=== PATIENT | female | born 1980 | race Two or more races ===

== ENCOUNTER 2016-07-03 23:12 | Emergency (ER) | payer OTHER ==
[~2016-07-03] VITALS: Ht 170.2 cm; Wt 72.6 kg
[2016-07-03] MEDS ORDERED: HYDR25TAB PO (23:26)
[2016-07-03] MEDS ORDERED: NAPR1TAB86 PO (23:26)
[2016-07-03] MEDS ORDERED: MIRA33504 PO (23:26)
[2016-07-03] MEDS ORDERED: PROP80CA PO (23:26)
[2016-07-03] MEDS ORDERED: CYCL10TA PO (23:26)
[2016-07-03] MEDS ORDERED: NORT25CA2 PO (23:26)
[2016-07-03] MEDS ORDERED: ZOLM2.5T2 PO (23:26)
[2016-07-04] MEDS ORDERED: PERCOCET 5MG/325MG TAB PO ONE (05:00)
[2016-07-04] MEDS ORDERED: ONDANSETRON 4 MG ORAL DISINTEGRATING TAB (S0181) PO ONE (05:00)
[2016-07-04 05:16] VITALS: BP 120/85
== END 2016-07-04 05:18 | disposition home or self-care (01) ==
LOC: M ED 07-04 00:28
DX: R04.0 Epistaxis (principal); R51 Headache; G43.909 Migraine, unspecified, not intractable, without status migrainosus; I10 Essential (primary) hypertension; Z79.899 Other long term (current) drug therapy; Z88.8 Allergy status to other drugs, medicaments and biological substances

== ENCOUNTER 2016-09-02 22:14 | Emergency (ER) | payer OTHER ==
[~2016-09-02] VITALS: Ht 170.2 cm; Wt 70.4 kg
[~2016-09-02 22:14] MED LIST: CYCL10TA PO; HYDR25TAB PO; MIRA33504 PO; NAPR1TAB86 PO; NORT25CA2 PO; PROP80CA PO; ZOLM2.5T2 PO
[2016-09-02] MEDS ORDERED: BENA25TA10 PO (22:24)
[2016-09-02] MEDS ORDERED: diphenhydrAMINE INJ 50MG/ML VIAL (J1200) IV STA (22:52)
[2016-09-02] MEDS ORDERED: KETOROLAC 30 MG/ML VIAL (J1885) IV ONE (23:00)
[2016-09-02] MEDS ORDERED: NS 1,000 ML IV ONE (23:00)
[2016-09-02] MEDS ORDERED: ONDANSETRON 4MG/2ML VIAL (J2405) IV ONE (23:00)
[2016-09-03 00:20] VITALS: BP 100/63
[2016-11-03] MEDS ORDERED: ONDA4TAB6 PO (15:38)
[2016-11-03] MEDS ORDERED: PANT40TA2 PO (15:38)
[2016-11-03] MEDS ORDERED: NORT10CA2 PO (15:38)
[2016-11-03] MEDS ORDERED: SUMA4INJ3 SC (15:38)
== END 2016-09-03 00:27 | disposition home or self-care (01) ==
LOC: M ED 22:14
DX: G43.909 Migraine, unspecified, not intractable, without status migrainosus (principal); Z79.899 Other long term (current) drug therapy; Z88.8 Allergy status to other drugs, medicaments and biological substances
CPT/HCPCS: 96361; 96374; 96375; 99283; J1200; J1885; J2405

== ENCOUNTER 2016-11-09 12:22 | Day surgery (SDC) | payer OTHER ==
[~2016-11-09] VITALS: Ht 170.2 cm; Wt 70.3 kg
[~2016-11-09 12:22] MED LIST changes: +BENA25TA10 PO; +LR 1,000 ML IV ONE; +NORT10CA2 PO; +ONDA4TAB6 PO; +PANT40TA2 PO; +SUMA4INJ3 SC
[2016-11-09 13:12] LABS: MEAN CORPUSCULAR HEMOGLOBIN 29.6 pg (27.0-33.0); MEAN CORPUSCULAR HGB CONC 33.8 g/dl (32.0-36.5); MEAN CORPUSCULAR VOLUME 87.5 fl (80.0-96.0); WHITE BLOOD COUNT 4.7 K/mm3 (4.0-10.0)
[2016-11-09] MEDS ORDERED: PROPOFOL 200 MG/20 ML VIAL As Ordered ONE (13:19)
[2016-11-09] MEDS ORDERED: dexameTHASONE 4 MG/ML 1ML VIAL (J1100) As Ordered ONE (13:19)
[2016-11-09] MEDS ORDERED: LIDOCAINE 2% INJ 100 MG/5 ML SDV (FOR ANES.) As Ordered ONE (13:19)
[2016-11-09] MEDS ORDERED: ONDANSETRON 4MG/2ML VIAL (J2405) As Ordered ONE (13:19)
[2016-11-09] MEDS ORDERED: KETOROLAC 60 MG/2 ML VIAL (J1885) As Ordered ONE (13:19)
[2016-11-09] MEDS ORDERED: MIDAZOLAM INJ 2 MG/2 ML VIAL (J2250) As Ordered ONE ×2 (13:20→15:23)
[2016-11-09] MEDS ORDERED: fentaNYL 100 MCG/2 ML INJECTION (J3010) As Ordered ONE (13:20)
[2016-11-09 13:42] LABS: CONTROL LINE HCG INT CTR LINE PRESENT
[2016-11-09] MEDS ORDERED: LIDOCAINE W/EPINEPHRINE 1% 20ML VIAL As Ordered ONE (14:21)
[2016-11-09] MEDS ORDERED: KETAMINE HCL 200 MG/20 ML VIAL As Ordered ONE (14:51)
[2016-11-09] MEDS ORDERED: ONDANSETRON 4MG/2ML VIAL (J2405) IV PRN ×2 (15:45→16:00)
[2016-11-09] MEDS ORDERED: LR 1,000 ML IV SCH (15:45)
[2016-11-09] MEDS ORDERED: NORCO, ANEXSIA 5/325MG TABLET (HYDROcodone/ACETAMINOPHEN) PO PRN (15:45)
[2016-11-09] MEDS ORDERED: MIDAZOLAM INJ 2 MG/2 ML VIAL (J2250) IV ONE (16:00)
[2016-11-09] MEDS ORDERED: KETOROLAC 30 MG/ML VIAL (J1885) IV PRN (16:00)
[2016-11-09] MEDS ORDERED: MIDAZOLAM INJ 2 MG/2 ML VIAL (J2250) IV PRN (16:00)
[2016-11-09] MEDS ORDERED: MORPHINE 2 MG/ML 1ML SYRINGE IV PRN (16:00)
[2016-11-09 16:40] VITALS: BP 126/85
--- NOTE | 2016-11-10 06:45 | RO ---
DATE OF PROCEDURE: 11/09/2016 PREOPERATIVE DIAGNOSIS: Cervical dysplasia. POSTOPERATIVE DIAGNOSIS: Cervical dysplasia. PROCEDURE: Loop electrosurgical excision procedure (LEEP). SURGEON: Dr. Theodore Merrill SENIOR ACCOUNT DIRECTOR: None. ANESTHESIA: IV Sedation/PAROLE DIRECTOR Kitty. COMPLICATIONS: None. IV FLUIDS: 700 mL isotonic fluid. ESTIMATED BLOOD LOSS: Less than 5 mL. URINE OUTPUT: 25 mL in and out. The patient is a 36-year-old, (G) 0, with known cervical dysplasia found to have high-grade squamous intraepithelial lesion (HSIL) on biopsies. The patient was extensively counseled on risks/benefits/alternatives/indications with recommendation for excisional procedure. The patient was taken to the operating room after consent was signed and underwent again risks/benefits/alternatives/indication counseling. After the patient appropriately underwent anesthesia, the patient was prepped and draped in routine fashion. In and out catheter was placed. A sterile speculum was placed into the patient's vagina and the cervix was visualized. A single tooth tenaculum was used to grasp the anterior lip of the cervix. A paracervical block with 20 mL of 1% lidocaine with epinephrine was utilized in routine fashion and 3% acetic acid was then placed all around the cervix with aceta whitening noted. The single tooth tenaculum was then removed. A LEEP was done with removal of tissue, tagging at 12 o'clock. This was removed in two segments. At the conclusion of this, ball cautery was used to coagulate the remaining tissue until hemostasis was obtained. As hemostasis was obtained, all instruments were removed from the patient's vaginal and a manual sweep demonstrated no retained objects. The needle, sponge and lap counts were correct times two. The patient was taken to the recovery room in stable condition. No antibiotics were indicated for this case. Shara Merrill [employer] CH[employer]STY
== END 2016-11-09 16:53 | disposition home or self-care (01) ==
LOC: M SDC 12:22
PROVIDERS: ATTEND Student in an Organized Health Care Education/Training Program
DX: N85.01 Benign endometrial hyperplasia (principal); R87.810 Cervical high risk human papillomavirus (HPV) DNA test positive; I10 Essential (primary) hypertension; N97.9 Female infertility, unspecified; K21.9 Gastro-esophageal reflux disease without esophagitis; Z87.891 Personal history of nicotine dependence; Z88.8 Allergy status to other drugs, medicaments and biological substances; Z79.899 Other long term (current) drug therapy
CPT/HCPCS: 36415; 57522; 84703; 85027; 86850; 86900; 86901; 88305; J1100; J1885; J2250; J2405; J3010

== ENCOUNTER 2016-11-14 21:26 | Emergency (ER) | payer OTHER ==
[~2016-11-14] VITALS: Ht 170.2 cm; Wt 71.8 kg
[~2016-11-14 21:26] MED LIST changes: -LR 1,000 ML IV ONE
[2016-11-15] MEDS ORDERED: KETOROLAC 60 MG/2 ML VIAL (J1885) IM ONE (02:00)
[2016-11-15] MEDS ORDERED: KETOROLAC 30 MG/ML VIAL (J1885) As Ordered ONE (02:03)
[2016-11-15 02:21] LABS: BASO % 0.3 % (0.0-1.0); EOS # 0.1 K/mm3 (0.0-0.50); LARGE UNSTAINED CELL # 0.1 K/mm3 (0.0-0.4); LARGE UNSTAINED CELL % 1.1 % (0.0-4.0); LYMPH # 2.2 K/mm3 (1.5-4.5); LYMPH % 31.8 % (24.0-44.0); MEAN CORPUSCULAR HEMOGLOBIN 28.8 pg (27.0-33.0); MEAN CORPUSCULAR HGB CONC 32.9 g/dl (32.0-36.5); MEAN CORPUSCULAR VOLUME 87.6 fl (80.0-96.0); MONO # 0.3 K/mm3 (0.0-0.8); MONO % 4.1 % (0.0-5.0); NEUTROPHILS # 4.2 K/mm3 (1.8-7.7); NEUTROPHILS % 60.6 % (36.0-66.0); PLATELET COUNT, AUTOMATED 255 k/mm3 (150-450); RED CELL DISTRIBUTION WIDTH 12.1 % (11.5-14.5)
[2016-11-15 02:58] VITALS: BP 138/93
== END 2016-11-15 03:01 | disposition home or self-care (01) ==
LOC: M ED 21:26
DX: N92.0 Excessive and frequent menstruation with regular cycle (principal); I10 Essential (primary) hypertension; K21.9 Gastro-esophageal reflux disease without esophagitis; Z79.899 Other long term (current) drug therapy; Z88.8 Allergy status to other drugs, medicaments and biological substances; Z98.890 Other specified postprocedural states; Z87.42 Personal history of other diseases of the female genital tract
CPT/HCPCS: 36415; 84702; 85025; 86901; 96372; 99283; J1885

== ENCOUNTER 2017-05-12 09:34 | Emergency (ER) | payer OTHER ==
[2017-05-12] MEDS: ACETAMINOPHEN 325 MG TAB PO (10:20)
[2017-05-12 10:28] LABS: CONTROL LINE HCG INT CTR LINE PRESENT; HCG, SERUM QUALITATIVE NEGATIVE (NEGATIVE)
[2017-05-12 10:32] LABS: KETONE, URINE AUTO RFX NEGATIVE (NEGATIVE); MUCUS, URINE RFX SMALL (NEGATIVE); NITRITE, URINE AUTO RFX NEGATIVE (NEGATIVE); RBC, URINE AUTO RFX 4 /HPF (0-3); SPECIFIC GRAVITY UR AUTO RFX 1.023 (1.002-1.035); SQUAM EPITHELIAL CELL UR AURFX 2 /HPF (0-6); WBC, URINE AUTO RFX 1 /HPF (0-3)
[2017-05-12 10:34] LABS: LEUKOCYTE ESTERASE UR AUTO RFX TRACE (NEGATIVE)
[2017-05-12 12:12] LABS: ANION GAP 7 MEQ/L (8-16); BLOOD UREA NITROGEN 13 MG/DL (7-18); CALCIUM LEVEL 8.7 MG/DL (8.5-10.1); CARBON DIOXIDE LEVEL 28 MEQ/L (21-32); CHLORIDE LEVEL 107 MEQ/L (98-107); GLOMERULAR FILTRATION RATE > 60.0 (>60); GLUCOSE, FASTING 90 MG/DL (70-100); POTASSIUM SERUM 4.5 MEQ/L (3.5-5.1); SODIUM LEVEL 142 MEQ/L (136-145)
== END 2017-05-12 12:26 | disposition home or self-care (01) ==
LOC: M ED 09:34
DX: N83.201 Unspecified ovarian cyst, right side (principal); N83.202 Unspecified ovarian cyst, left side; N83.8 Other noninflammatory disorders of ovary, fallopian tube and broad ligament; I10 Essential (primary) hypertension; G43.909 Migraine, unspecified, not intractable, without status migrainosus; D35.2 Benign neoplasm of pituitary gland; Z88.8 Allergy status to other drugs, medicaments and biological substances; Z79.899 Other long term (current) drug therapy
CPT/HCPCS: 76856

== ENCOUNTER 2017-06-21 23:12 | Emergency (ER) | payer OTHER ==
[2017-06-22] MEDS ORDERED: ONDANSETRON 4MG/2ML VIAL (J2405) As Ordered (02:20)
[2017-06-22] MEDS: MORPHINE 10 MG/ML 1ML VIAL (J2270) IM (02:24)
[2017-06-22] MEDS: NS 1,000 ML IV (02:35)
[2017-06-22] MEDS: ONDANSETRON 4MG/2ML VIAL (J2405) IV (02:35)
== END 2017-06-22 03:31 | disposition home or self-care (01) ==
LOC: M ED 23:12
DX: Z03.6 Encounter for observation for suspected toxic effect from ingested substance ruled out (principal); I10 Essential (primary) hypertension; G43.909 Migraine, unspecified, not intractable, without status migrainosus
CPT/HCPCS: J2405

== ENCOUNTER 2017-06-22 14:16 | Emergency (ER) | payer OTHER ==
[2017-06-22] MEDS: KETOROLAC 30 MG/ML VIAL (J1885) IV (16:32)
[2017-06-22] MEDS: PROMETHAZINE INJ 25 MG/ML VIAL (J2550) IV (16:32)
[2017-06-22 16:43] LABS: HEMATOCRIT 36.3 % (36.0-47.0); MEAN CORPUSCULAR HEMOGLOBIN 29.3 pg (27.0-33.0); MEAN CORPUSCULAR HGB CONC 33.1 g/dl (32.0-36.5); MEAN CORPUSCULAR VOLUME 88.8 fl (80.0-96.0); PLATELET COUNT, AUTOMATED 242 10^3/uL (150-450); RED BLOOD COUNT 4.09 10^6/uL (4.00-5.40); RED CELL DISTRIBUTION WIDTH 12.3 % (11.5-14.5)
[2017-06-22 17:19] LABS: ANION GAP 7 MEQ/L (8-16); BLOOD UREA NITROGEN 13 MG/DL (7-18); CALCIUM LEVEL 8.6 MG/DL (8.5-10.1); CARBON DIOXIDE LEVEL 26 MEQ/L (21-32); CHLORIDE LEVEL 105 MEQ/L (98-107); GLOMERULAR FILTRATION RATE > 60.0 (>60); GLUCOSE, FASTING 108 MG/DL (70-100); POTASSIUM SERUM 3.8 MEQ/L (3.5-5.1); SODIUM LEVEL 138 MEQ/L (136-145)
== END 2017-06-22 18:44 | disposition home or self-care (01) ==
LOC: M ED 14:16
DX: G43.909 Migraine, unspecified, not intractable, without status migrainosus (principal); Z79.899 Other long term (current) drug therapy; Z88.8 Allergy status to other drugs, medicaments and biological substances
CPT/HCPCS: J1885

== ENCOUNTER → 2017-07-04 | Outpatient (CLI) | payer OTHER ==
[~2017-07-04] MED LIST changes: -BENA25TA10 PO; -CYCL10TA PO; -HYDR25TAB PO; -MIRA33504 PO; -NAPR1TAB86 PO; -NORT10CA2 PO; -NORT25CA2 PO; -ONDA4TAB6 PO; -PANT40TA2 PO; +PROHANCE 279.3MG/ML 15ML VIAL (A9576) As Ordered; -PROP80CA PO; -SUMA4INJ3 SC; -ZOLM2.5T2 PO
== END ==
LOC: M RAD 12:54
DX: E22.1 Hyperprolactinemia (principal)
CPT/HCPCS: A9576

== ENCOUNTER → 2018-05-09 | Outpatient (CLI) | payer OTHER ==
[~2018-05-09] MED LIST changes: +BENA25TA10 PO; +BROM1TAB IC; +CLOM50TA9 PO; +CYCL10TA PO; +HYDR25TAB PO; +IMIT5SPR; +MIRA33504 PO; +NAPR1TAB86 PO; +NORT10CA2 PO; +NORT25CA2 PO; +ONDA4TAB6 PO; +PANT40TA3 PO; +PRENTAB77; -PROHANCE 279.3MG/ML 15ML VIAL (A9576) As Ordered; +PROP80CA PO; +SUMA4INJ3 SC; +ZOLM2.5T2 PO
--- NOTE | 2018-05-09 10:23 | REP ---
BILATERAL BASELINE MAMMOGRAM: Bilateral mammography performed in the MLO and CC projections. This is the patient's baseline mammogram. There is a family history of breast cancer in mother at age 37. Tyrer-Cuzick lifetime risk of breast cancer is 38%. Breast parenchyma is extremely dense bilaterally. This limits the sensitivity of the mammogram. There is a rounded nodular density at 12 o'clock in the left breast approximately 8 mm in diameter. No other definite mass is seen. No clustered microcalcifications are seen. IMPRESSION: ACR 0 incomplete. Possible 8 mm nodule 12 o'clock left breast anteriorly. Recommend spot compression views and ultrasound to further evaluate. Also given the patient's markedly dense breasts and Tyrer-Cuzick lifetime risk of breast cancer at 38%, supplemental screening breast MRI is recommended. BIRADS 0: BI-RADS/ACR category 0 mammogram, Incomplete: Need additional imaging evaluation and/or prior mammograms for comparison. This mammogram was interpreted with the aid of an FDA-approved computer-aided detection system. The patient states she has not had a clinical breast exam in over a year. The patient letter being requested is M0. Electronically Signed by Misha Miles MD 05/09/2018 08:33 P
== END ==
LOC: M RAD 08:08
PROVIDERS: ATTEND Student in an Organized Health Care Education/Training Program
DX: Z12.31 Encounter for screening mammogram for malignant neoplasm of breast (principal); Z80.3 Family history of malignant neoplasm of breast; N63.20 Unspecified lump in the left breast, unspecified quadrant

== ENCOUNTER → 2018-05-23 | Outpatient (CLI) | payer OTHER ==
--- NOTE | 2018-05-24 10:24 | REP ---
DIGITAL DIAGNOSTIC UNILATERAL LEFT BREAST MAMMOGRAPHY WITH CAD AND FOCUSED LEFT BREAST SONOGRAPHY: HISTORY: Screening mammography May 09, 2018 was BIRADS category 0 because of an 8 mm nodule density in the 12-o'clock position. Diagnostic imaging was recommended. FINDINGS: Breast parenchyma is again seen to be heterogeneously dense. A 12-o'clock position in the superficial subdermal soft tissues there is an 8 mm nodular opacity seen on magnified focal spot compression diagnostic images. No other dominant density is seen. No microcalcific cluster, worrisome skin change, or architectural distortion is seen. SONOGRAPHIC FINDINGS: Focused left breast sonography is performed from 11-o'clock position to 1-o'clock position. Heterogeneous fibroglandular echotexture is seen. There are a few dilated ducts seen. At 12-o'clock position, there is a cyst measuring 6 x 5 x 5 mm just adjacent to the nipple. Also at 12-o'clock position and more superficially, there is a complex cystic structure containing hypoechoic material. This measures 7 x 5 x 5 mm. This is felt to correspond with the mammographic opacity. It does not meet criteria of a simple cyst. IMPRESSION: BIRADS 4: BI-RADS/ACR category 4 mammogram. Suspicious Abnormality - biopsy should be considered. BIRADS category is felt to be best assigned as category 4 suspicious left breast imaging. There is a superficial nodule at 12-o'clock position, which does not meet criteria of a simple cyst. Ultrasound guided cyst aspiration and/or biopsy is recommended. This mammogram was interpreted with the aid of an FDA-approved computer-aided detection system. The patient states that she/he has not had a clinical breast exam in over a year. The patient letter being requested is M4 dense . Electronically Signed by Sameer Dixon MD 05/24/2018 12:50 P
== END ==
LOC: M RAD 14:15
PROVIDERS: ATTEND Student in an Organized Health Care Education/Training Program
DX: R92.2 Inconclusive mammogram (principal); N63.20 Unspecified lump in the left breast, unspecified quadrant

== ENCOUNTER → 2018-06-25 | Outpatient (CLI) | payer OTHER ==
[~2018-06-25] MED LIST changes: +LIDOCAINE 1% MDV 20ML VIAL As Ordered ONE
--- NOTE | 2018-06-25 11:29 | REP ---
POST BIOPSY LEFT BREAST MAMMOGRAM: Following ultrasound-guided biopsy of the left breast nodule, mammogram is performed of the left breast in the ML and CC projections. Metallic clip is seen at the site of the nodule in the upper outer quadrant. Electronically Signed by Misha Miles MD 06/25/2018 05:28 P
--- NOTE | 2018-06-25 17:30 | REP ---
ULTRASOUND GUIDED LEFT BREAST BIOPSY The procedure was performed under the direct supervision of Dr. Miles The patient has a history of the superficial nodule at the 12 o'clock position of the left breast which is not the criteria of a simple cyst seen on a previous ultrasound dated 05/23/2018. The risks and benefits of the procedure were explained to the patient and informed consent was obtained. The left breast nodule was localized using ultrasound guidance. The skin was prepped and draped in a sterile fashion. 1% Xylocaine was used as a local anesthetic. Using ultrasound guidance a 13-gauge suction assisted Mammotome needle was inserted and six core biopsy samples were obtained. A marker clip was placed at the biopsy site. The patient tolerated the procedure well and there were no immediate complications. After the appropriate amount of monitored convalescence the patient was discharged from the department. Reviewed by EVERETT Cannon 06/25/2018 03:03 P Electronically Signed by Misha Miles MD 06/25/2018 05:21 P
== END ==
LOC: M RADPRO 09:36
PROVIDERS: ATTEND Surgery
DX: N60.12 Diffuse cystic mastopathy of left breast (principal); Z79.899 Other long term (current) drug therapy; Z88.8 Allergy status to other drugs, medicaments and biological substances

== ENCOUNTER → 2018-08-26 | Outpatient (REF) | payer OTHER ==
[~2018-08-26] MED LIST changes: -LIDOCAINE 1% MDV 20ML VIAL As Ordered ONE
[2018-08-26 19:29] LABS: HEMATOCRIT 38.5 % (36.0-47.0); HEMOGLOBIN 12.1 g/dl (12.0-15.5); MEAN CORPUSCULAR HEMOGLOBIN 29.5 pg (27.0-33.0); MEAN CORPUSCULAR HGB CONC 31.4 g/dl (32.0-36.5); MEAN CORPUSCULAR VOLUME 93.9 fl (80.0-96.0); PLATELET COUNT, AUTOMATED 246 10^3/uL (150-450); WHITE BLOOD COUNT 5.8 10^3/uL (4.0-10.0)
[2018-08-26 19:53] LABS: ERYTHROCYTE SEDIMENTATION RATE 12 mm/hr (0-20)
[2018-08-26 20:07] LABS: ALBUMIN 3.8 GM/DL (3.2-5.2); ALT/SGPT 14 U/L (12-78); BILIRUBIN,TOTAL 0.5 MG/DL (0.2-1.0); BLOOD UREA NITROGEN 14 MG/DL (7-18); CALCIUM LEVEL 9.1 MG/DL (8.5-10.1); CARBON DIOXIDE LEVEL 22 MEQ/L (21-32); CHLORIDE LEVEL 111 MEQ/L (98-107); CPK CREATINE PHOSPHOKINASE 97 U/L (26-192); CREATININE FOR GFR 0.71 MG/DL (0.55-1.30); GLOMERULAR FILTRATION RATE > 60.0 (>60); GLUCOSE, FASTING 76 MG/DL (70-100); POTASSIUM SERUM 3.9 MEQ/L (3.5-5.1); RHEUMATOID FACTOR QUANT < 10.0 IU/ML (<15.0); SODIUM LEVEL 141 MEQ/L (136-145); TOTAL PROTEIN 7.6 GM/DL (6.4-8.2)
[2018-08-27 11:34] LABS: TOTAL 25(OH) VITAMIN D 15.9 NG/ML (30.0-100.0)
[2018-08-30 00:07] LABS: ANTINUCLEAR ANTIBODIES DIRECT Negative (Negative); Lyme Disease IgG Ab 18 kDa Ban Absent (.); Lyme Disease IgG Ab 23 kDa Ban Present (.); Lyme Disease IgG Ab 28 kDa Ban Absent (.); Lyme Disease IgG Ab 30 kDa Ban Absent (.); Lyme Disease IgG Ab 39 kDa Ban Absent (.); Lyme Disease IgG Ab 41 kDa Ban Absent (.); Lyme Disease IgG Ab 45 kDa Ban Absent (.); Lyme Disease IgG Ab 58 kDa Ban Absent (.); Lyme Disease IgG Ab 66 kDa Ban Absent (.); Lyme Disease IgG Ab 93 kDa Ban Present (.); Lyme Disease IgG West Blot Int Negative (.); Lyme Disease IgG/IgM Antibodie <0.91 ISR (0.00-0.90); Lyme Disease IgM Ab 23 kDa Ban Present (.); Lyme Disease IgM Ab 39 kDa Ban Present (.); Lyme Disease IgM Ab 41 kDa Ban Absent (.); Lyme Disease IgM Ab Quantitati 1.14 index (0.00-0.79); Lyme Disease IgM West Blot Int Positive (.)
== END ==
LOC: M SFHCLERA 15:41
PROVIDERS: ATTEND Nurse Practitioner Family
DX: M79.10 Myalgia, unspecified site (principal)

== ENCOUNTER → 2018-11-28 | Outpatient (CLI) | payer OTHER ==
--- NOTE | 2018-11-28 14:43 | REP ---
BILATERAL MAMMOGRAM AND BILATERAL BREAST ULTRASOUND: Family history of breast cancer at age 37 in mother, also breast cancer in maternal aunt. Benign ultrasound guided biopsy of left breast 06/25/2018. The [facility] lifetime risk of breast cancer is 37.7%. Patient complains of a pinching sensation at the site of the biopsy at 12 o'clock left breast. Patient also complains of right axillary pain. MLO and CC views of the both breasts performed and compared to prior study of 05/09/2018. Once again there is very dense fibroglandular tissue bilaterally. There is no change in the pattern with no definite new mass or architectural distortion. A metallic clip is seen at the 12 o'clock position of the left breast anteriorly at the site of the benign biopsy. Small axillary lymph nodes are seen bilaterally. Real-time sonographic evaluation of the left breast performed at 12 o'clock at the site of the prior biopsy. A nodule is again seen, now containing a biopsy marking clip. The nodule measures 4 x 3 x 6 mm, smaller than on the prior study at which time the nodule measured 7 x 5 x 5 mm. Real-time sonographic evaluation of the right axillary region demonstrates no suspicious abnormality. IMPRESSION: BIRADS 2: BI-RADS/ACR category 2 mammogram. Benign Findings. Dense breast parenchyma limits the sensitivity of the mammogram. No mass or clustered microcalcifications bilaterally. At the site of pinching in the left breast, at the site of the prior biopsy, a nodule is again seen containing a biopsy marking clip, slightly smaller than on the prior ultrasound in June 2018. The biopsy was benign. There is no sonographic abnormality or suspicious nodule in the right axillary region where the patient complains of pain. Recommend followup mammogram in 1 year. Also given the patient's elevated lifetime risk of breast cancer, yearly supplemental screening MRI of the breast is recommended. This mammogram was interpreted with the aid of an FDA-approved computer-aided detection system. The patient states he/she had a clinical breast exam in 11/2018. The patient letter being requested is M2. Electronically Signed by Misha Miles MD 11/28/2018 03:23 P
== END ==
LOC: M RAD 10:38
PROVIDERS: ATTEND Transplant Surgery
DX: N60.32 Fibrosclerosis of left breast (principal); N63.20 Unspecified lump in the left breast, unspecified quadrant; Z80.3 Family history of malignant neoplasm of breast

== ENCOUNTER 2019-03-06 13:57 | Emergency (ER) | payer OTHER ==
[~2019-03-06] VITALS: Ht 165.1 cm; Wt 67.3 kg
[~2019-03-06 13:57] MED LIST changes: -BROM1TAB IC; +BROM2.5T2 IC; +ZOLM2.5T14 PO; -ZOLM2.5T2 PO
[2019-03-06] MEDS ORDERED: SUMA100T2 PO (14:08)
[2019-03-06] MEDS ORDERED: LABE10TAB PO (14:08)
[2019-03-06] MEDS ORDERED: BUTA-198 PO (14:08)
[2019-03-06] MEDS ORDERED: SUMA6INJ16 (14:08)
[2019-03-06] MEDS ORDERED: ZOFR4TAB16 PO (14:08)
[2019-03-06] MEDS ORDERED: TOPI100T9 PO (14:08)
[2019-03-06] MEDS ORDERED: dexameTHASONE 4 MG/ML 1ML VIAL (J1100) IV ONE (14:45)
[2019-03-06] MEDS ORDERED: NS 1,000 ML IV ONE (14:45)
[2019-03-06] MEDS ORDERED: KETOROLAC 30 MG/ML VIAL (J1885) IV ONE (14:45)
[2019-03-06] MEDS ORDERED: METOCLOPRAMIDE INJ 10MG/2ML VIAL (J2765) IV ONE (14:45)
[2019-03-06] MEDS ORDERED: diphenhydrAMINE INJ 50MG/ML VIAL (J1200) IV ONE (14:45)
[2019-03-06 15:06] LABS: BASO % 0.4 % (0.0-1.0); EOS % 0.3 % (0.0-3.0); HEMATOCRIT 37.4 % (36.0-47.0); HEMOGLOBIN 11.8 g/dl (12.0-15.5); LYMPH # 1.1 10^3/uL (1.5-5.0); LYMPH % 15.9 % (24.0-44.0); MEAN CORPUSCULAR HEMOGLOBIN 28.8 pg (27.0-33.0); MEAN CORPUSCULAR HGB CONC 31.6 g/dl (32.0-36.5); MEAN CORPUSCULAR VOLUME 91.2 fl (80.0-96.0); MONO # 0.2 10^3/uL (0.0-0.8); MONO % 3.4 % (0.0-5.0); NEUTROPHILS # 5.7 10^3/uL (1.5-8.5); NEUTROPHILS % 79.7 % (36.0-66.0); PLATELET COUNT, AUTOMATED 226 10^3/uL (150-450); WHITE BLOOD COUNT 7.1 10^3/uL (4.0-10.0)
[2019-03-06 15:39] LABS: BLOOD UREA NITROGEN 15 MG/DL (7-18); CALCIUM LEVEL 8.9 MG/DL (8.5-10.1); CARBON DIOXIDE LEVEL 22 MEQ/L (21-32); CHLORIDE LEVEL 112 MEQ/L (98-107); CREATININE FOR GFR 0.75 MG/DL (0.55-1.30); GLOMERULAR FILTRATION RATE > 60.0 (>60); GLUCOSE, FASTING 110 MG/DL (70-100); POTASSIUM SERUM 3.9 MEQ/L (3.5-5.1); SODIUM LEVEL 141 MEQ/L (136-145)
--- NOTE | 2019-03-06 15:44 | REP ---
Clinical: Headache. Technique: Axial noncontrast images from the skull base to the vertex with coronal re-formations . Comparison: 06/22/2017 . Findings: The ventricles, sulci, and cisterns are normal in position and appearance. Miles-white differentiation is maintained. No acute intracranial hemorrhage, mass/mass effect, pathology or trauma/injury. No evidence for acute infarction. No extra-axial fluid collection. Calvarium is intact. Paranasal sinuses and mastoid air cells are clear. Impression: Normal noncontrast head CT. No evidence for acute intracranial pathology or trauma/injury. Electronically Signed by Phill Power MD 03/06/2019 03:36 P
[2019-03-06 16:53] LABS: ALBUMIN 3.7 GM/DL (3.2-5.2); ALT/SGPT 17 U/L (12-78); BILIRUBIN,DIRECT < 0.1 MG/DL (0.0-0.2); BILIRUBIN,TOTAL 0.3 MG/DL (0.2-1.0); TOTAL PROTEIN 7.3 GM/DL (6.4-8.2)
--- NOTE | 2019-03-06 17:37 | REP ---
Clinical: Right upper quadrant pain. Technique: Real time don scale and color evaluation using curved array transducer. Findings: Liver and pancreas are normal in contour, size, echogenicity without focal hepatic or pancreatic lesion identified. The gallbladder is normal and without gallstones, wall thickening, or pericholecystic fluid. No biliary ductal dilatation is appreciated and the common bile duct measures 2.1 mm diameter. The right kidney is normal in reniform shape without hydronephrosis and measures 10.5 x 5.3 x 4.6 cm. No ascites in the visualized right upper quadrant. Impression: Normal right upper quadrant ultrasound examination. Electronically Signed by Phill Power MD 03/06/2019 05:28 P
[2019-03-06] MEDS ORDERED: DICY1CAP8 PO (18:03)
[2019-03-06 18:29] VITALS: BP 109/63
== END 2019-03-06 18:31 | disposition home or self-care (01) ==
LOC: M ED 13:57
DX: G43.909 Migraine, unspecified, not intractable, without status migrainosus (principal); G89.29 Other chronic pain; R10.9 Unspecified abdominal pain; Z79.899 Other long term (current) drug therapy; Z88.8 Allergy status to other drugs, medicaments and biological substances
CPT/HCPCS: 70450; 76705; 80048; 80076; 84702; 85025; 96361; 96374; 96375; 99284; J1100; J1200; J1885; J2765